=== PATIENT | male | born 1995 ===

== ENCOUNTER 2018-04-12 11:11 | Emergency (ER) | payer OTHER ==
--- NOTE | 2018-04-12 11:58 | ED ---
General Adult HPI - General Chief complaint: Extremity Injury, Lower Stated complaint: [facility] rt knee injury Time Seen by Provider: 04/12/18 11:47 Source: patient, oleomargarine maker, RN notes reviewed Mode of arrival: ambulatory Limitations: language barrier - History of Present Illness Initial comments: Patient 22-year-old male presented to the emergency room today with a chief complaint of an injury to her left knee that occurred 2 days ago. Patient's primary language is Chinese and a oleomargarine maker was used. Patient doesn't attend was at work when he jumped down landing funny on the left knee. Does admit to pain since that time. Patient denies any other injury or complaint. Patient denies any recent fever, chills, shortness of breath, chest pain, back pain, abdominal pain, nausea or vomiting, numbness or tingling, headaches or visual changes, or any other complaints. - Related Data Previous Rx's Medication Instructions Recorded Ibuprofen [Motrin] 600 mg PO Q6HR PRN #40 day 04/12/18 Allergies Allergy/AdvReac Type Severity Reaction Status Date / Time No Known Allergies Allergy Verified 04/12/18 12:00 Review of Systems ROS Statement: Those systems with pertinent positive or pertinent negative responses have been documented in the HPI. ROS Other: All systems not noted in ROS Statement are negative. Past Medical History Past Medical History: No Reported History History of Any Multi-Drug Resistant Organisms: None Reported Past Surgical History: No Surgical Hx Reported Past Psychological History: No Psychological Hx Reported Smoking Status: Current every day smoker Past Alcohol Use History: None Reported Past Drug Use History: None Reported General Exam - General Exam Comments Initial Comments: General: The patient is awake and alert, in no distress, and does not appear acutely ill. Neck: The neck is supple, there is no tenderness or JVD. Cardiovascular: There is a regular rate and rhythm. No murmur, rub or gallop is appreciated. Respiratory: Lungs are clear to auscultation, respirations are non-labored, breath sounds are equal. No wheezes, stridor, rales, or rhonchi. Musculoskeletal: Normal appearance of the left knee no obvious deformity. Shows good range of motion both flexion and extension. Sensations intact. Pulses 2+. Mild tenderness superior to the patella anteriorly. Neurological: A&O x 3. CN II-XII intact, There are no obvious motor or sensory deficits. Coordination appears grossly intact. Speech is normal. Skin: Skin is warm and dry and no rashes or lesions are noted. Psychiatric: Normal mood and affect. Limitations: language barrier Course Vital Signs 04/12/18 11:28 Temperature 98.1 F Pulse Rate 76 Respiratory 16 Rate Blood Pressure 123/76 O2 Sat by Pulse 100 Oximetry Medical Decision Making - Medical Decision Making X-rays are negative. Results were discussed with the patient using oleomargarine maker. Patient advised to ice elevate the affected area and ibuprofen for pain and to follow-up with orthopedics over the next 2 days for symptoms. Disposition Clinical Impression: Knee pain Disposition: HOME SELF-CARE Condition: Good Instructions: Knee Pain (ED) Additional Instructions: Please use medication as discussed. Please follow-up with orthopedic doctor in 2 days. Please return to emergency room if the symptoms increase or worsen or for any other concerns. Prescriptions: Ibuprofen [Motrin] 600 mg PO Q6HR PRN #40 day PRN Reason: Pain Is patient prescribed a controlled substance at d/c from ED?: No Referrals: None,Stated [Primary Care Provider] - 1-2 days Alhaji Borrero DO [Doctor of Osteopathic Medicine] - 1-2 days Time of Disposition: 12:56
--- NOTE | 2018-04-12 12:21 | XR ---
EXAMINATION TYPE: XR knee complete LT DATE OF EXAM: 04/12/2018 CLINICAL HISTORY: Left knee pain after injury TECHNIQUE: Three views of the left knee are obtained. COMPARISON: None. FINDINGS: There is no acute fracture/dislocation evident in left knee. The tri-compartment joint sp aces appear within normal limits. The overlying soft tissue appears unremarkable. Incidentally noted probable osteochondroma of the medial aspect of the proximal fibular metaphysis. IMPRESSION: There is no acute fracture or dislocation in the left knee.
[2018-04-12 13:24] VITALS: BP 133/74; PULSE 75; RESP 18; TEMP 97.9
== END 2018-04-12 13:24 | disposition home or self-care (01) ==
LOC: EC 11:11
DX: M25.562 Pain in left knee (principal); F17.200 Nicotine dependence, unspecified, uncomplicated; W17.89XA Other fall from one level to another, initial encounter; Y93.39 Activity, other involving climbing, rappelling and jumping off; Y92.69 Other specified industrial and construction area as the place of occurrence of the external cause; Y99.0 Civilian activity done for income or pay
CPT/HCPCS: 99283